=== PATIENT | female | born 1950 | race Caucasian/White ===

== ENCOUNTER 2021-05-12 11:37 | Emergency (ER) | payer MEDICARE ==
[~2021-05-12] VITALS: Ht 165.1 cm; Wt 65.0 kg
[2021-05-12] MEDS ORDERED: IV NORMAL SALINE 1,000ML 1,000 ML IV ONE (12:00)
--- NOTE | 2021-05-12 12:03 | PHYS DOC ---
General Adult EDM: Chief Complaint: rectal bleeding HPI: HPI: 71 yo female presents with rectal bleeding. The patient had a small amount of bright red rectal bleeding last night after a normal bowel movement. Around 2 AM she woke up with a watery discharge and small amount that she believes is coming from the rectum. She continues to have this watery discharge with occasional blood. She has a history of hemorrhoids. She believes they are inflamed at this time because she has some discomfort. She has a history of complete hysterectomy. She has never had a colonoscopy. She denies fever or chills. Review of Systems: Review of Systems: Constitutional: Denies fever or chills Eyes: Denies change in visual acuity HENT: Denies nasal congestion or sore throat Respiratory: Denies cough or shortness of breath Cardiovascular: Denies chest pain or edema GI: Denies abdominal pain, nausea, vomiting, bloody stools or diarrhea : Rectal bleeding Musculoskeletal: Denies back pain or joint pain Integument: Denies rash Neurologic: Denies headache, focal weakness or sensory changes Endocrine: Denies polyuria or polydipsia Lymphatic: Denies swollen glands Psychiatric: Denies depression or anxiety Physical Exam: PE: Constitutional: Well developed, well nourished, no acute distress, non-toxic appearance. [] HENT: Normocephalic, atraumatic, bilateral external ears normal, oropharynx moist, no oral exudates, nose normal. [] Eyes: PERRLA, EOMI, conjunctiva normal, no discharge. [] Neck: Normal range of motion, no tenderness, supple, no stridor. [] Cardiovascular: Heart rate regular rhythm, no murmur [] Lungs & Thorax: Bilateral breath sounds clear to auscultation [] Abdomen: Bowel sounds normal, soft, no tenderness, no masses, no pulsatile masses. [] Skin: Warm, dry, no erythema, no rash. [] Back: No tenderness, no CVA tenderness. [] Extremities: No tenderness, no cyanosis, no clubbing, ROM intact, no edema. [] Neurologic: Alert and oriented X 3, normal motor function, normal sensory function, no focal deficits noted. [] Psychologic: Affect normal, judgement normal, mood normal. : thrombosed external hemorrhoid, not new. Surrounding perirectal edema. [] EKG: EKG: [] Radiology/Procedures: Radiology/Procedures: [] Impressions: CT abdomen and pelvis with contrast: Reason for examination: Rectal bleeding. Helical images were obtained through the abdomen and pelvis with intravenous administration of 75 cc of Omnipaque 300. Reconstruction was performed in sagittal and coronal planes. Exposure: One or more of the following individualized dose reduction techniques were utilized for this examination: 1. Automated exposure control 2. Adjustment of the mA and/or kV according to patient size 3. Use of iterative reconstruction technique. The lung bases are clear. The heart size is normal with no pericardial effusion evident. The liver shows a couple of small hypodense nodules in the left lobe which probably represent small cysts which are subcentimeter in size. A few calcified hepatic granuloma are seen. There are splenic granuloma but no other focal splenic lesions are seen. No abnormality seen at the pancreas. Gallbladder shows no cholelithiasis or wall thickening. No abnormalities of seen at the adrenal glands. The abdominal aorta shows some arteriosclerotic vascular calcification. There is also aneurysmal dilatation of the distal thoracic aorta starting at the level o f the inferior mesenteric artery. This measures approximately 3.7 x 3.5 cm in AP and transverse dimensions and extends approximately 5.5 cm in craniocaudal dimension. Mural thrombus is present no gross abnormality seen at the inferior vena cava. No acute abnormality seen at the stomach or duodenum. No wall thickening, dilatation or obstruction is seen at the small intestinal tract. There is no evidence of diverticulitis or colitis. There is some thickening suggesting mild edema at the junction between the rectum and anus. The kidneys show no renal masses, renal calculi, hydronephrosis or evidence of obstructive uropathy. No abnormality seen at the bladder or vaginal cuff. No free fluid or free air seen in the abdomen or pelvis. There is a mild wedge compression deformity at the L1 vertebral body with large Schmorl's node in superior endplate. There is severe degenerative disc disease at the L3-4 disc level. No acute bony abnormalities are seen. IMPRESSION: Aneurysmal dilatation with mural thrombus in the distal abdominal aorta measuring 3.7 x 3.5 x 5.5 cm in AP, transverse and craniocaudal dimensions. Thickening suggesting edema at the junction between the rectum and anus. Electronically signed by: Geraldine Lozano MD (05/12/2021 2:11 PM) [facility] DICTATED AND SIGNED BY: GERALDINE LOZANO MD DATE: 05/12/21 [id number] CC: DARELL BERNARD DO; JANEE CHRISTENSEN MD ~MTH0 0 Heart Score: C/O Chest Pain: N/A Risk Factors: Risk Factors: DM, Current or recent (<one month) smoker, HTN, HLP, family history of CAD, obesity. Risk Scores: Score 0 - 3: 2.5% MACE over next 6 weeks - Discharge Home Score 4 - 6: 20.3% MACE over next 6 weeks - Admit for Clinical Observation Score 7 - 10: 72.7% MACE over next 6 weeks - Early Invasive Strategies Course & Med Decision Making: Course & Med Decision Making Pertinent Labs and Imaging studies reviewed. (See chart for details) The patient's labs are unremarkable. Her hemoglobin is normal. On exam she does have a thrombosed hemorrhoid. She also has some other hemorrhoid-like tissue. I have advised that she follow-up with general surgery and consider some revision in this area to help with her current symptoms as well as prevent future complications. The surrounding edema should improve on its own. The patient CT of the abdomen and pelvis did show an abdominal aortic aneurysm. See official read for details in size. I strongly urged patient to inform her doctor this on Friday so that he can be properly followed up. Patient states verbal understanding. She is stable for discharge at this time. [] Yoon Disclaimer: Yoon Disclaimer: This electronic medical record was generated, in whole or in part, using a voice recognition dictation system. Departure Departure: Impression: Primary Impression: Abdominal aortic aneurysm Qualified Codes: I71.4 - Abdominal aortic aneurysm, without rupture Additional Impression: Thrombosed external hemorrhoid Disposition: HOME / SELF CARE / HOMELESS Condition: STABLE Referrals: JANEE CHRISTENSEN MD (PCP) Patient Instructions: Abdominal Aortic Aneurysm, Hemorrhoids, [id number] DARELL BERNARD DO May 12, 2021 12:03
[2021-05-12] MEDS ORDERED: IOHEXOL 300 MG/ML 75 ML VIAL. IV ONE (12:30)
[2021-05-12 12:58] LABS: BASO % 0 % (0-3); EOS % 1 % (0-3); HEMATOCRIT 40.9 % (36.0-47.0); HEMOGLOBIN 14.1 g/dL (12.0-15.5); LYMPH # 2.2 x10^3/uL (1.0-4.8); LYMPH % 29 % (24-48); MEAN CORPUSCULAR HEMOGLOBIN 34 pg (25-35); MEAN CORPUSCULAR HGB CONC 34 g/dL (31-37); MEAN CORPUSCULAR VOLUME 99 fL (79-100); MONO # 0.5 x10^3/uL (0.0-1.1); MONO % 6 % (0-9); NEUT # 4.9 x10^3uL (1.8-7.7); NEUT % 64 % (31-73); PLATELET COUNT 261 x10^3/uL (140-400); RED BLOOD COUNT 4.14 x10^6/uL (3.50-5.40); RED CELL DISTRIBUTION WIDTH 13.9 % (11.5-14.5); WHITE BLOOD COUNT 7.6 x10^3/uL (4.0-11.0)
[2021-05-12 13:03] LABS: BILIRUBIN,URINE NEG (NEG); CLARITY,URINE HAZY; COLOR,URINE YELLOW; CREATININE 0.9 mg/dL (0.6-1.0); GFR 62.1; GLUCOSE,URINE NEG (NEG); NITRITE,URINE NEG (NEG); UROBILINOGEN,URINE 0.2 mg/dL (0.2 mg/dL)
[2021-05-12 13:04] LABS: AMORPHOUS SEDIMENT,UR PRESENT /HPF; BACTERIA,URINE FEW /HPF (0-FEW); SQUAMOUS EPITHELIAL CELL,UR FEW /LPF; WBC,URINE 0 /HPF (0-4)
[2021-05-12 13:09] LABS: ALBUMIN 3.8 g/dL (3.4-5.0); TOTAL BILIRUBIN 0.3 mg/dL (0.2-1.0); TOTAL PROTEIN 7.6 g/dL (6.4-8.2)
[2021-05-12] MEDS ORDERED: IV RINGERS SOLUTION,LACTATED 1,000 ML IV ONE (13:30)
--- NOTE | 2021-05-12 14:14 | RAD ---
CT abdomen and pelvis with contrast: Reason for examination: Rectal bleeding. Helical images were obtained through the abdomen and pelvis with intravenous administration of 75 cc of Omnipaque 300. Reconstruction was performed in sagittal and coronal planes. Exposure: One or more of the following individualized dose reduction techniques were utilized for thi s examination: 1. Automated exposure control 2. Adjustment of the mA and/or kV according to patient size 3. Use of iterative reconstruction technique. The lung bases are clear. The heart size is normal with no pericardial effusion evident. The liver shows a couple of small hypodense nodules in the left lobe which probably represent small c ysts which are subcentimeter in size. A few calcified hepatic granuloma are seen. There are splenic granuloma but no other focal splenic lesions are seen. No abnormality seen at the pancreas. Gallbladder shows no cholelithiasis or wall thickening. No abnormalities of seen at the adrenal glands. The abdominal aorta shows some arteriosclerotic vascular calcification. There is also aneurysmal dila tation of the distal thoracic aorta starting at the level of the inferior mesenteric artery. This evelin sures approximately 3.7 x 3.5 cm in AP and transverse dimensions and extends approximately 5.5 cm in craniocaudal dimension. Mural thrombus is present no gross abnormality seen at the inferior vena cava . No acute abnormality seen at the stomach or duodenum. No wall thickening, dilatation or obstruction i s seen at the small intestinal tract. There is no evidence of diverticulitis or colitis. There is saundra e thickening suggesting mild edema at the junction between the rectum and anus. The kidneys show no renal masses, renal calculi, hydronephrosis or evidence of obstructive uropathy. No abnormality seen at the bladder or vaginal cuff. No free fluid or free air seen in the abdomen or pelvis. There is a mild wedge compression deformity at the L1 vertebral body with large Schmorl's node in sup erior endplate. There is severe degenerative disc disease at the L3-4 disc level. No acute bony abnor malities are seen. IMPRESSION: Aneurysmal dilatation with mural thrombus in the distal abdominal aorta measuring 3.7 x 3.5 x 5.5 cm in AP, transverse and craniocaudal dimensions. Thickening suggesting edema at the junction between the rectum and anus. Electronically signed by: Geraldine Arauz MD (05/12/2021 2:11 PM) [facility]
[2021-05-12 14:30] VITALS: BP 116/67
== END 2021-05-12 14:46 | disposition home or self-care (01) ==
LOC: ER 11:37
DX: I71.4 Abdominal aortic aneurysm, without rupture (principal); K64.5 Perianal venous thrombosis; Z90.710 Acquired absence of both cervix and uterus
CPT/HCPCS: 36415; 74177; 80053; 81001; 85025; 96360; 99284; J7120; Q9967